=== PATIENT | female | born 1985 | race Caucasian/White ===

== ENCOUNTER 2021-01-12 09:21 | Emergency (ER) | payer BC ==
[~2021-01-12] VITALS: Ht 165.1 cm; Wt 117.8 kg
--- NOTE | 2021-01-12 09:46 | NUR ---
ASSUMING CARE OF PT. SHE IS HERE FOR CONGESTION, DIARRHEA, HEADACHE, AND SORE THROAT X 2 DAYS, CP STARTED THIS MORNING, PRESSURE AT CENTER OF CHEST. [id number] RECENTLY TESTED POSITIVE FOR COVID. PT IN GOWN, HOOKED TO MONITORS, VSS, NADN. CALL LIGHT AND BELONGING W/IN REACH.
--- NOTE | 2021-01-12 10:03 | NUR ---
PT SWABBED FOR COVID, WALKED DOWN TO LAB. RADIOLOGY BEDSIDE NOW FOR CXR. VSS, NADN. CALL LIGHT W/IN REACH.
[2021-01-12 10:45] VITALS: BP 125/79
--- NOTE | 2021-01-12 11:04 | NUR ---
Patient given discharge instructions and they have confirmed that they understand the instructions. Patient ambulatory with steady gait.
== END 2021-01-12 11:11 | disposition home or self-care (01) ==
LOC: ED 10:45
DX: U07.1 COVID-19 (principal); J41.1 Mucopurulent chronic bronchitis; R51.9 Headache, unspecified; R07.89 Other chest pain; Z90.49 Acquired absence of other specified parts of digestive tract; F17.200 Nicotine dependence, unspecified, uncomplicated; R94.31 Abnormal electrocardiogram [ECG] [EKG]
CPT/HCPCS: 71045; 93005; 99285; U0003; U0005